=== PATIENT | male | born 1995 | race Caucasian/White ===

== ENCOUNTER 2016-11-18 15:30 | Emergency (ER) | payer MEDICAID ==
[~2016-11-18] VITALS: Ht 172.7 cm; Wt 59.1 kg
[~2016-11-18 15:30] MED LIST: CEPHALEXIN500 M1 PO; MOTRIN 200200 MG/TAB PO; NO HOME MEDICATIONS; NORCO 325 MG-51 TAB PO; NORCO 325 MG-7.1 TAB PO; PREDNISONE20 MG PO; TYLENOL 325MG325 MG PO; ZITHROMAX 250M250 MG PO; ZOFRAN 4MG T4 MG/TAB PO
[2016-11-18 15:34] VITALS: BP 130/77; TEMP 98.5
[2016-11-18 16:15] LABS: PH 6 (5-8); SQUAMOUS EPITHELIAL None Seen /hpf; URINE APPEARANCE Clear; URINE BACTERIA None Seen /hpf; URINE BILIRUBIN Negative (NEGATIVE); URINE BLOOD Negative (NEGATIVE); URINE COLOR Straw; URINE GLUCOSE Negative (NEGATIVE); URINE KETONE Negative (NEGATIVE); URINE RBC 0-2 /hpf; URINE UROBILINOGEN Negative (NEGATIVE); URINE WBC 0-2 /hpf
[2016-11-18 16:19] LABS: BASO # 0.1 (0.0-0.2); BASO % 1.2 % (0.0-2.0); EOS # 0.2 (0.0-0.7); EOS % 2.3 % (0-4.0); GRAN # 2.6 (1.4-6.5); GRAN % 38.9 % (42.2-75.2); HEMATOCRIT 44.5 % (36.0-47.0); HEMOGLOBIN 15.4 g/dl (12.5-16.1); LYMPH # 2.8 (1.2-3.4); LYMPH % 42.5 % (20.0-51.0); MEAN CELL VOLUME 89 fl (80.0-95.0); MEAN CORPUSCULAR HEMOGLOBIN 31 pg (26.0-32.0); MEAN CORPUSCULAR HGB CONC 35 g/dl (33.0-37.0); MEAN PLATELET VOLUME 10.7 fl (7.4-10.4); MONO % 14.8 % (1.7-9.3); PLATELET COUNT 250 K/mm3 (130-400); RED BLOOD COUNT 5.03 M/mm3 (4.20-5.60); WHITE BLOOD COUNT 6.6 K/mm3 (4.8-10.8)
[2016-11-18 16:25] LABS: AMPHETAMINE URINE NEGATIVE; BARBITURATES URINE NEGATIVE; BENZODIAZEPINES URINE NEGATIVE; BUPRENORPHINE URINE NEGATIVE; METHADONE URINE NEGATIVE; OPIATES URINE NEGATIVE; OXYCODONE URINE NEGATIVE; PHENCYCLIDINE URINE NEGATIVE; PROPOXYPHENE URINE NEGATIVE; THC CANNABINOIDS URINE NEGATIVE
[2016-11-18 16:28] LABS: ADJUSTED CALCIUM 8.6 mg/dL (8.4-10.2); ALANINE AMINOTRANSFERASE 42 U/L (21-72); ALBUMIN 4.5 gm/dL (3.5-5.0); ALKALINE PHOSPHATASE 116 U/L (50-136); ANION GAP 11 mmol/L (7-16); BILIRUBIN,TOTAL 0.8 mg/dL (0.0-1.0); BLOOD UREA NITROGEN 13 mg/dL (9-20); CARBON DIOXIDE 27 mmol/L (22-30); CHLORIDE 102 mmol/L (98-107); CREATININE, serum 0.93 mg/dL (0.66-1.25); GLUCOSE 98 mg/dL (74-106); SODIUM 140 mmol/L (137-145); TOTAL PROTEIN 7.5 gm/dL (6.4-8.2)
[2016-11-18 16:33] LABS: C-REACTIVE PROTEIN < 0.5 mg/dL (0.0-0.9)
[2016-11-18 16:42] LABS: PROLACTIN 9.9 ng/mL (3.7-17.9)
[2016-11-18 17:07] VITALS: PULSE 75
== END 2016-11-18 17:07 | disposition home or self-care (01) ==
LOC: COL.ER 15:30
PROVIDERS: Emergency Medicine
DX: G25.9 Extrapyramidal and movement disorder, unspecified (principal); Z81.8 Family history of other mental and behavioral disorders
CPT/HCPCS: J7030

== ENCOUNTER 2017-05-21 23:18 | Emergency (ER) | payer SELFPAY ==
[~2017-05-21] VITALS: Ht 170.2 cm; Wt 61.8 kg
[2017-05-21 23:21] VITALS: BP 121/82; TEMP 98.7
[2017-05-21] MEDS ORDERED: ULTRAM 50MG TAB50 MG PO (23:42)
[2017-05-21] MEDS ORDERED: AMOXICILLIN/CLA1 TA1 PO (23:42)
[2017-05-21 23:58] VITALS: PULSE 80
== END 2017-05-21 23:59 | disposition home or self-care (01) ==
LOC: COL.ER 23:18
DX: S61.231A Puncture wound without foreign body of left index finger without damage to nail, initial encounter (principal); W55.01XA Bitten by cat, initial encounter; Y92.009 Unspecified place in unspecified non-institutional (private) residence as the place of occurrence of the external cause; F17.210 Nicotine dependence, cigarettes, uncomplicated; Z98.890 Other specified postprocedural states

== ENCOUNTER → 2017-06-12 | Outpatient (CLI) | payer SELFPAY ==
[~2017-06-12] MED LIST changes: +AMOXICILLIN/CLA1 TA1 PO; +ULTRAM 50MG TAB50 MG PO
== END ==
LOC: COL.CARD 12:42
DX: R56.9 Unspecified convulsions (principal)

== ENCOUNTER 2017-07-15 22:31 | Emergency (ER) | payer MEDICAID ==
[~2017-07-15] VITALS: Ht 172.7 cm; Wt 61.8 kg
[2017-07-15 22:37] VITALS: BP 117/65; TEMP 99.5
[2017-07-15] MEDS ORDERED: FLEXERIL 1010 MG/TAB PO (23:26)
[2017-07-15 23:44] VITALS: PULSE 60
== END 2017-07-15 23:44 | disposition home or self-care (01) ==
LOC: COL.ER 22:31
DX: M26.602 Left temporomandibular joint disorder, unspecified (principal); F17.210 Nicotine dependence, cigarettes, uncomplicated

== ENCOUNTER 2017-07-26 21:48 | Emergency (ER) | payer MEDICAID ==
[~2017-07-26] VITALS: Ht 172.7 cm; Wt 59.1 kg
[~2017-07-26 21:48] MED LIST changes: +FLEXERIL 1010 MG/TAB PO
[2017-07-26 21:50] VITALS: BP 109/73; TEMP 99.4
[2017-07-26 23:19] VITALS: PULSE 70
== END 2017-07-26 23:20 | disposition home or self-care (01) ==
LOC: COL.ER 21:48
DX: S46.911A Strain of unspecified muscle, fascia and tendon at shoulder and upper arm level, right arm, initial encounter (principal); Z98.890 Other specified postprocedural states; X50.0XXA Overexertion from strenuous movement or load, initial encounter; Y92.009 Unspecified place in unspecified non-institutional (private) residence as the place of occurrence of the external cause

== ENCOUNTER 2017-08-28 22:40 | Emergency (ER) | payer MEDICAID ==
[~2017-08-28] VITALS: Ht 172.7 cm; Wt 59.1 kg
[2017-08-28 22:42] VITALS: TEMP 98.5
[2017-08-28 23:10] LABS: BASO # 0.1 (0.0-0.2); BASO % 1.3 % (0.0-2.0); EOS # 0.1 (0.0-0.7); EOS % 1.5 % (0-4.0); GRAN # 4.4 (1.4-6.5); GRAN % 46.2 % (42.2-75.2); HEMATOCRIT 44.2 % (42.0-52.0); HEMOGLOBIN 14.9 g/dl (13.5-18.0); LYMPH # 3.7 (1.2-3.4); LYMPH % 38.7 % (20.0-51.0); MEAN CELL VOLUME 90 fl (80.0-100.0); MEAN CORPUSCULAR HEMOGLOBIN 30 pg (27.0-31.0); MEAN CORPUSCULAR HGB CONC 34 g/dl (33.0-37.0); MEAN PLATELET VOLUME 11.1 fl (7.4-10.4); MONO # 1.1 (0.1-0.6); MONO % 11.9 % (1.7-9.3); PLATELET COUNT 242 K/mm3 (130-400); RED BLOOD COUNT 4.94 M/mm3 (4.20-5.60); WHITE BLOOD COUNT 9.4 K/mm3 (4.8-10.8)
[2017-08-28 23:19] LABS: ADJUSTED CALCIUM 8.7 mg/dL (8.4-10.2); ALBUMIN 4.5 gm/dL (3.5-5.0); BILIRUBIN,TOTAL 0.6 mg/dL (0.0-1.0); CALCIUM 9.1 mg/dL (8.4-10.2); CREATININE, serum 0.8 mg/dL (0.66-1.25); POTASSIUM 3.7 mmol/L (3.4-5.0); TOTAL PROTEIN 6.8 gm/dL (6.4-8.2)
[2017-08-28 23:36] LABS: PROLACTIN 12.2 ng/mL (3.7-17.9)
[2017-08-29 00:33] VITALS: BP 125/75; PULSE 79
== END 2017-08-29 00:35 | disposition home or self-care (01) ==
LOC: COL.ER 22:40
PROVIDERS: Emergency Medicine
DX: R56.9 Unspecified convulsions (principal); F17.210 Nicotine dependence, cigarettes, uncomplicated
CPT/HCPCS: J2060; J7030

== ENCOUNTER 2017-10-21 23:27 | Emergency (ER) | payer MEDICAID ==
[~2017-10-21] VITALS: Ht 172.7 cm; Wt 61.0 kg
[2017-10-21 23:30] VITALS: BP 118/73; TEMP 100.8
[2017-10-22 00:27] LABS: BASO # 0.1 (0.0-0.2); BASO % 0.6 % (0.0-2.0); EOS # 0.1 (0.0-0.7); EOS % 0.4 % (0-4.0); GRAN # 9.5 (1.4-6.5); GRAN % 75.9 % (42.2-75.2); HEMATOCRIT 43.9 % (42.0-52.0); HEMOGLOBIN 15.2 g/dl (13.5-18.0); LYMPH # 1.8 (1.2-3.4); LYMPH % 14.4 % (20.0-51.0); MEAN CELL VOLUME 89 fl (80.0-100.0); MEAN CORPUSCULAR HEMOGLOBIN 31 pg (27.0-31.0); MEAN CORPUSCULAR HGB CONC 35 g/dl (33.0-37.0); MEAN PLATELET VOLUME 10.6 fl (7.4-10.4); MONO % 8.3 % (1.7-9.3); PLATELET COUNT 255 K/mm3 (130-400); RED BLOOD COUNT 4.96 M/mm3 (4.20-5.60); REDCELL DISTRIBUTION WIDTH-CV 12.2 % (11.5-14.5)
[2017-10-22 00:28] LABS: INFLUENZA A NEGATIVE; INFLUENZA B NEGATIVE
[2017-10-22 00:37] LABS: ALBUMIN 4.8 gm/dL (3.5-5.0); BILIRUBIN,TOTAL 0.9 mg/dL (0.0-1.0); CALCIUM 9.1 mg/dL (8.4-10.2); CREATININE, serum 0.84 mg/dL (0.66-1.25); POTASSIUM 3.8 mmol/L (3.4-5.0); TOTAL PROTEIN 7.4 gm/dL (6.4-8.2)
[2017-10-22 00:49] VITALS: PULSE 96
== END 2017-10-22 00:49 | disposition home or self-care (01) ==
LOC: COL.ER 23:27
PROVIDERS: Family Medicine
DX: G43.909 Migraine, unspecified, not intractable, without status migrainosus (principal)
CPT/HCPCS: J1885; J2550

== ENCOUNTER 2017-11-04 19:03 | Emergency (ER) | payer MEDICAID ==
[~2017-11-04] VITALS: Ht 172.7 cm; Wt 60.9 kg
[2017-11-04 19:05] VITALS: BP 120/72; PULSE 73; TEMP 99
[2017-11-04] MEDS ORDERED: NORCO 325 MG-51 TAB PO (20:14)
[2017-11-04] MEDS ORDERED: AMOXICILLIN 50500 MG PO (20:14)
== END 2017-11-04 20:31 | disposition home or self-care (01) ==
LOC: COL.ER 19:03
DX: K02.9 Dental caries, unspecified (principal); F17.210 Nicotine dependence, cigarettes, uncomplicated; Z98.890 Other specified postprocedural states

== ENCOUNTER 2017-11-28 18:11 | Emergency (ER) | payer MEDICAID ==
[~2017-11-28] VITALS: Ht 172.7 cm; Wt 61.8 kg
[~2017-11-28 18:11] MED LIST changes: +AMOXICILLIN 50500 MG PO
[2017-11-28 18:14] VITALS: BP 126/79; PULSE 76; TEMP 98.6
[2017-11-28] MEDS ORDERED: FLEXERIL 1010 MG/TAB PO (18:31)
== END 2017-11-28 18:47 | disposition home or self-care (01) ==
LOC: COL.ER 18:11
DX: M26.602 Left temporomandibular joint disorder, unspecified (principal); F17.210 Nicotine dependence, cigarettes, uncomplicated

== ENCOUNTER 2017-12-04 17:37 | Emergency (ER) | payer MEDICAID ==
[~2017-12-04] VITALS: Ht 172.7 cm; Wt 60.9 kg
[2017-12-04 17:41] VITALS: BP 116/77; TEMP 98.9
[2017-12-04 18:41] VITALS: PULSE 80
== END 2017-12-04 18:42 | disposition home or self-care (01) ==
LOC: COL.ER 17:37
DX: S60.221A Contusion of right hand, initial encounter (principal); F17.210 Nicotine dependence, cigarettes, uncomplicated; W23.0XXA Caught, crushed, jammed, or pinched between moving objects, initial encounter; Y92.009 Unspecified place in unspecified non-institutional (private) residence as the place of occurrence of the external cause

== ENCOUNTER 2018-01-03 13:53 | Emergency (ER) | payer MEDICAID ==
[~2018-01-03] VITALS: Ht 172.7 cm; Wt 60.0 kg
[2018-01-03 13:55] VITALS: BP 126/67; TEMP 98.8
[2018-01-03] MEDS ORDERED: CEPHALEXIN500 M1 PO (14:54)
[2018-01-03 14:56] VITALS: PULSE 75
== END 2018-01-03 14:57 | disposition home or self-care (01) ==
LOC: COL.ER 13:53
DX: S60.362A Insect bite (nonvenomous) of left thumb, initial encounter (principal); F17.210 Nicotine dependence, cigarettes, uncomplicated; Z98.890 Other specified postprocedural states; W57.XXXA Bitten or stung by nonvenomous insect and other nonvenomous arthropods, initial encounter

== ENCOUNTER 2018-01-26 04:26 | Emergency (ER) | payer MEDICAID ==
[~2018-01-26] VITALS: Ht 172.7 cm; Wt 60.9 kg
[2018-01-26 04:34] VITALS: TEMP 98
[2018-01-26 05:46] LABS: BASO # 0.1 (0.0-0.2); BASO % 0.8 % (0.0-2.0); EOS # 0.3 (0.0-0.7); EOS % 2.6 % (0-4.0); GRAN # 3.9 (1.4-6.5); GRAN % 39.6 % (42.2-75.2); HEMATOCRIT 44.8 % (42.0-52.0); HEMOGLOBIN 15.4 g/dl (13.5-18.0); LYMPH # 4.2 (1.2-3.4); LYMPH % 42.5 % (20.0-51.0); MEAN CELL VOLUME 87 fl (80.0-100.0); MEAN CORPUSCULAR HEMOGLOBIN 30 pg (27.0-31.0); MEAN CORPUSCULAR HGB CONC 34 g/dl (33.0-37.0); MEAN PLATELET VOLUME 10.4 fl (7.4-10.4); MONO # 1.4 (0.1-0.6); MONO % 14.3 % (1.7-9.3); PLATELET COUNT 298 K/mm3 (130-400); RED BLOOD COUNT 5.18 M/mm3 (4.20-5.60); REDCELL DISTRIBUTION WIDTH-CV 12.5 % (11.5-14.5)
[2018-01-26 05:57] LABS: ALANINE AMINOTRANSFERASE 53 U/L (21-72); ALKALINE PHOSPHATASE 113 U/L (50-136); ANION GAP 11 mmol/L (7-16); AST,SGOT 29 U/L (15-37); BILIRUBIN,TOTAL 0.5 mg/dL (0.0-1.0); BLOOD UREA NITROGEN 15 mg/dL (9-20); CALCIUM 9.3 mg/dL (8.4-10.2); CARBON DIOXIDE 29 mmol/L (22-30); CHLORIDE 101 mmol/L (98-107); GLUCOSE 91 mg/dL (74-106); POTASSIUM 3.9 mmol/L (3.4-5.0); SODIUM 141 mmol/L (137-145); TOTAL PROTEIN 7.2 gm/dL (6.4-8.2)
[2018-01-26 06:08] LABS: TROPONIN-I < 0.012 ng/mL (0.000-0.034)
[2018-01-26 06:39] VITALS: BP 102/65; PULSE 66
== END 2018-01-26 06:39 | disposition home or self-care (01) ==
LOC: COL.ER 04:26
PROVIDERS: Emergency Medicine
DX: R07.89 Other chest pain (principal); M79.602 Pain in left arm

== ENCOUNTER 2018-02-04 15:49 | Emergency (ER) | payer MEDICAID ==
[~2018-02-04] VITALS: Ht 172.7 cm; Wt 60.9 kg
[2018-02-04 15:51] VITALS: TEMP 99.7
[2018-02-04 16:40] LABS: ANION GAP 14 mmol/L (7-16); BLOOD UREA NITROGEN 15 mg/dL (9-20); CALCIUM 9.7 mg/dL (8.4-10.2); CARBON DIOXIDE 26 mmol/L (22-30); CHLORIDE 103 mmol/L (98-107); CREATININE, serum 0.96 mg/dL (0.66-1.25); GLUCOSE 99 mg/dL (74-106); POTASSIUM 3.6 mmol/L (3.4-5.0); SODIUM 143 mmol/L (137-145)
[2018-02-04 16:46] VITALS: BP 129/71
[2018-02-04 16:52] LABS: TROPONIN-I < 0.012 ng/mL (0.000-0.034)
[2018-02-04 17:11] VITALS: PULSE 78
== END 2018-02-04 17:14 | disposition home or self-care (01) ==
LOC: COL.ER 15:49
PROVIDERS: Emergency Medicine
DX: R07.89 Other chest pain (principal); R06.00 Dyspnea, unspecified; F17.210 Nicotine dependence, cigarettes, uncomplicated; Z98.890 Other specified postprocedural states

== ENCOUNTER 2018-02-12 12:15 | Emergency (ER) | payer MEDICAID ==
[~2018-02-12] VITALS: Ht 172.7 cm; Wt 64.5 kg
[2018-02-12 12:17] VITALS: BP 127/68; PULSE 80; TEMP 99.3
== END 2018-02-12 13:38 | disposition home or self-care (01) ==
LOC: COL.ER 12:15
DX: R09.89 Other specified symptoms and signs involving the circulatory and respiratory systems (principal); T45.2X5A Adverse effect of vitamins, initial encounter; F17.210 Nicotine dependence, cigarettes, uncomplicated

== ENCOUNTER 2018-02-14 16:55 | Emergency (ER) | payer MEDICAID ==
[~2018-02-14] VITALS: Ht 172.7 cm; Wt 64.5 kg
[2018-02-14 16:57] VITALS: BP 132/67; TEMP 99.5
[2018-02-14 17:59] VITALS: PULSE 70
== END 2018-02-14 18:00 | disposition home or self-care (01) ==
LOC: COL.ER 16:55
DX: M75.22 Bicipital tendinitis, left shoulder (principal); M75.82 Other shoulder lesions, left shoulder; Z87.891 Personal history of nicotine dependence; Z95.2 Presence of prosthetic heart valve; X50.0XXA Overexertion from strenuous movement or load, initial encounter; Y92.89 Other specified places as the place of occurrence of the external cause; Y99.0 Civilian activity done for income or pay

== ENCOUNTER 2018-03-03 18:23 | Emergency (ER) | payer MEDICAID ==
[~2018-03-03] VITALS: Ht 172.7 cm; Wt 61.8 kg
[2018-03-03 18:25] VITALS: BP 125/72; TEMP 97.6
[2018-03-03 19:29] VITALS: PULSE 58
== END 2018-03-03 19:30 | disposition home or self-care (01) ==
LOC: COL.ER 18:23
DX: S30.862A Insect bite (nonvenomous) of penis, initial encounter (principal); W57.XXXA Bitten or stung by nonvenomous insect and other nonvenomous arthropods, initial encounter; Z87.891 Personal history of nicotine dependence

== ENCOUNTER 2018-04-09 00:41 | Emergency (ER) | payer MEDICAID ==
[2018-04-09 00:48] VITALS: BP 116/65; PULSE 80; TEMP 98.9
== END 2018-04-09 01:25 | disposition home or self-care (01) ==
LOC: COL.ER 00:41
DX: M75.91 Shoulder lesion, unspecified, right shoulder (principal); Z98.890 Other specified postprocedural states

== ENCOUNTER 2018-05-26 17:39 | Emergency (ER) | payer MEDICAID ==
[~2018-05-26] VITALS: Ht 172.7 cm; Wt 62.7 kg
[2018-05-26 17:43] VITALS: BP 108/63; PULSE 85; TEMP 98.7
== END 2018-05-26 19:08 | disposition home or self-care (01) ==
LOC: COL.ER 17:39
DX: S20.212A Contusion of left front wall of thorax, initial encounter (principal); F17.210 Nicotine dependence, cigarettes, uncomplicated; W51.XXXA Accidental striking against or bumped into by another person, initial encounter; Y92.009 Unspecified place in unspecified non-institutional (private) residence as the place of occurrence of the external cause; Y93.72 Activity, wrestling
CPT/HCPCS: A9284; J1885

== ENCOUNTER 2018-06-03 18:12 | Emergency (ER) | payer SELFPAY ==
[~2018-06-03] VITALS: Wt 63.6 kg
[2018-06-03 18:14] VITALS: BP 112/70
[2018-06-03 18:43] VITALS: TEMP 98.1
[2018-06-03 19:16] VITALS: PULSE 68
== END 2018-06-03 19:19 | disposition home or self-care (01) ==
LOC: COL.ER 18:12
DX: S46.911A Strain of unspecified muscle, fascia and tendon at shoulder and upper arm level, right arm, initial encounter (principal); Z87.891 Personal history of nicotine dependence; X50.0XXA Overexertion from strenuous movement or load, initial encounter; Y92.009 Unspecified place in unspecified non-institutional (private) residence as the place of occurrence of the external cause
CPT/HCPCS: J1885

== ENCOUNTER 2018-06-19 12:28 | Emergency (ER) | payer SELFPAY ==
[~2018-06-19] VITALS: Ht 172.7 cm; Wt 61.8 kg
[2018-06-19 12:34] VITALS: BP 115/65; TEMP 99.2
[2018-06-19 14:27] VITALS: PULSE 70
== END 2018-06-19 14:31 | disposition home or self-care (01) ==
LOC: COL.ER 12:28
DX: M25.511 Pain in right shoulder (principal)
CPT/HCPCS: J3301

== ENCOUNTER 2018-07-20 15:09 | Emergency (ER) | payer SELFPAY ==
[~2018-07-20] VITALS: Ht 172.7 cm; Wt 61.8 kg
[2018-07-20 15:12] VITALS: BP 116/74; TEMP 98
[2018-07-20] MEDS ORDERED: MOTRIN 800800 MG/TAB PO (16:05)
[2018-07-20] MEDS ORDERED: NORCO 325 MG-51 TAB PO (16:05)
[2018-07-20] MEDS ORDERED: FLEXERIL 1010 MG/TAB PO (16:05)
[2018-07-20 16:25] VITALS: PULSE 83
== END 2018-07-20 16:26 | disposition home or self-care (01) ==
LOC: COL.ER 15:09
DX: S33.9XXA Sprain of unspecified parts of lumbar spine and pelvis, initial encounter (principal); Z87.891 Personal history of nicotine dependence; W11.XXXA Fall on and from ladder, initial encounter

== ENCOUNTER 2018-08-30 13:40 | Emergency (ER) | payer SELFPAY ==
[~2018-08-30] VITALS: Ht 172.7 cm; Wt 61.8 kg
[~2018-08-30 13:40] MED LIST changes: +MOTRIN 800800 MG/TAB PO
[2018-08-30 13:53] VITALS: TEMP 98.4
[2018-08-30 15:46] VITALS: BP 115/67; PULSE 82
== END 2018-08-30 15:46 | disposition home or self-care (01) ==
LOC: COL.ER 13:40
DX: M54.5 Low back pain (principal); Z87.891 Personal history of nicotine dependence
CPT/HCPCS: J1885; J2360

== ENCOUNTER 2018-09-21 16:16 | Emergency (ER) | payer SELFPAY ==
[~2018-09-21] VITALS: Ht 172.7 cm; Wt 61.8 kg
[2018-09-21 17:11] VITALS: BP 111/63; PULSE 73; TEMP 98.8
== END 2018-09-21 17:11 | disposition home or self-care (01) ==
LOC: COL.ER 16:16
DX: J02.9 Acute pharyngitis, unspecified (principal)

== ENCOUNTER 2018-11-03 14:34 | Emergency (ER) | payer SELFPAY ==
[~2018-11-03] VITALS: Ht 172.7 cm; Wt 61.8 kg
[2018-11-03 14:54] VITALS: BP 122/71; PULSE 84; TEMP 99.6
== END 2018-11-03 17:11 | disposition home or self-care (01) ==
LOC: COL.ER 14:34
DX: J06.9 Acute upper respiratory infection, unspecified (principal)

== ENCOUNTER 2019-07-08 20:29 | Emergency (ER) | payer SELFPAY ==
[~2019-07-08] VITALS: Ht 172.7 cm; Wt 68.2 kg
[2019-07-08 20:41] VITALS: BP 117/63; TEMP 98.2
[2019-07-08 21:57] VITALS: PULSE 86
== END 2019-07-08 21:58 | disposition home or self-care (01) ==
LOC: COL.ER 20:29
DX: S93.402A Sprain of unspecified ligament of left ankle, initial encounter (principal); X50.1XXA Overexertion from prolonged static or awkward postures, initial encounter

== ENCOUNTER 2020-04-21 22:18 | Emergency (ER) | payer SELFPAY ==
[~2020-04-21] VITALS: Ht 172.7 cm; Wt 68.2 kg
[2020-04-21 22:39] VITALS: BP 133/81; PULSE 64; TEMP 98.4
[2020-04-21] MEDS ORDERED: CLEOCIN HCL300 MG PO (22:59)
[2020-04-21] MEDS ORDERED: NORCO 325 MG-51 TAB PO (22:59)
== END 2020-04-21 23:16 | disposition home or self-care (01) ==
LOC: COL.ER 22:18
DX: K02.9 Dental caries, unspecified (principal); Z87.891 Personal history of nicotine dependence

== ENCOUNTER 2020-06-12 10:13 | Emergency (ER) | payer SELFPAY ==
[~2020-06-12] VITALS: Ht 172.7 cm; Wt 76.4 kg
[~2020-06-12 10:13] MED LIST changes: +CLEOCIN HCL300 MG PO
[2020-06-12 10:17] VITALS: BP 121/72; PULSE 89; TEMP 97.8
[2020-06-12] MEDS ORDERED: CRUTCHES MC (11:07)
== END 2020-06-12 11:42 | disposition home or self-care (01) ==
LOC: COL.ER 10:13
DX: S80.02XA Contusion of left knee, initial encounter (principal); W20.8XXA Other cause of strike by thrown, projected or falling object, initial encounter; Y92.59 Other trade areas as the place of occurrence of the external cause; Y99.0 Civilian activity done for income or pay
CPT/HCPCS: L1846

== ENCOUNTER 2020-07-28 05:10 | Day surgery (SDC) | payer OTHER ==
[2020-07-28] VITALS (9 sets, daily range): BP systolic 103–125; BP diastolic 62–78; PULSE 67–84; TEMP 98–98.6
[~2020-07-28] VITALS: Ht 172.7 cm; Wt 78.5 kg
[~2020-07-28 05:10] MED LIST changes: +CRUTCHES MC
[2020-07-28] MEDS ORDERED: TYLENOL 500MG500 MG PO (05:45)
[2020-07-28] MEDS ORDERED: NAPROSYN500 MG PO (06:57)
[2020-07-28] MEDS ORDERED: ROXICODONE 55 MG/TAB PO (06:57)
[2020-07-28] MEDS ORDERED: TYLENOL 325MG325 MG PO (06:57)
[2020-07-28] MEDS ORDERED: ZOFRAN 4MG T4 MG/TAB PO (06:57)
[2020-07-28] MEDS ORDERED: ASPIRIN E.C. 8181 MG PO (06:57)
--- NOTE | 2020-07-28 08:58 | NUR ---
Patient returns to room 7 per cart from PACU accompanied by Marisol MCCLENDON. IV fluids infusing. Siderails up x2 and call light in reach. Left leg elevated on pillow with ice on the left knee. Jose wrap dressing dry on the left leg. Drowsy and allowed to sleep.
--- NOTE | 2020-07-28 09:13 | NUR ---
Resting with eyes closed and fiance in the room.
--- NOTE | 2020-07-28 09:28 | NUR ---
Continues to rest with eyes closed.
--- NOTE | 2020-07-28 09:43 | NUR ---
Continues to rest with eyes closed. Patient took off oxygen and sats 96%.
--- NOTE | 2020-07-28 09:58 | NUR ---
More awake. Sitting up and eating muffin and sipping on Sprite.
--- NOTE | 2020-07-28 09:58 | NUR ---
Resting when not disturbed. IV fluids continue to infuse.
--- NOTE | 2020-07-28 10:24 | NUR ---
Assisted up to the bathroom and voids and returns to room. Complains of left knee pain. Medicated with Percocet 5mg one tab for pain. Has tolerated muffin and water without nausea.
--- NOTE | 2020-07-28 10:28 | NUR ---
Left leg elevated on pillow and ice on the knee.
--- NOTE | 2020-07-28 10:58 | NUR ---
Resting with eyes closed when not disturbed.
--- NOTE | 2020-07-28 11:23 | NUR ---
Toradol 30mg IV given for continued complaints of left knee pain. States that that the Percocet has not helped. Rates pain at 9/10. Requests second muffin and given.
--- NOTE | 2020-07-28 12:00 | NUR ---
Resting and now with eyes closed and not disturbed.
--- NOTE | 2020-07-28 13:00 | NUR ---
Continues to rest with eyes closed when not disturbed. Left leg elevated on pillow with ice bag in place.
--- NOTE | 2020-07-28 13:51 | NUR ---
Awake and states that he is feeling better and ready for discharge. IV discontinued and site is free of redness. Jose wrap dressing on the left knee dry. Given dismissal instructions and voices understanding of these.
--- NOTE | 2020-07-28 14:03 | NUR ---
Dismissed to home driven by spouse and taken to the front door per wheelchair and assisted into wheelchair with dismissal instructions in hand.
== END 2020-07-28 14:03 | disposition home or self-care (01) ==
LOC: SDCO 05:10
DX: S83.242A Other tear of medial meniscus, current injury, left knee, initial encounter (principal); Z83.3 Family history of diabetes mellitus; Z88.8 Allergy status to other drugs, medicaments and biological substances; Z20.828 Contact with and (suspected) exposure to other viral communicable diseases
CPT/HCPCS: J0690; J1100; J1885; J2405; J2550; J2704; J3010; J7120

== ENCOUNTER 2021-11-15 17:48 | Emergency (ER) | payer BC ==
[~2021-11-15] VITALS: Ht 175.3 cm; Wt 71.8 kg
[~2021-11-15 17:48] MED LIST changes: +ASPIRIN E.C. 8181 MG PO; +NAPROSYN500 MG PO; +ROXICODONE 55 MG/TAB PO; +TYLENOL 500MG500 MG PO
[2021-11-15 17:54] VITALS: TEMP 99.2
[2021-11-15] MEDS ORDERED: NORCO 325 MG-51 TAB PO (18:21)
[2021-11-15] MEDS ORDERED: AMOXICILLIN 50500 MG PO (18:21)
[2021-11-15 18:57] VITALS: BP 132/70; PULSE 76
== END 2021-11-15 18:57 | disposition home or self-care (01) ==
LOC: COL.ER 17:48
DX: K08.89 Other specified disorders of teeth and supporting structures (principal); F17.210 Nicotine dependence, cigarettes, uncomplicated
CPT/HCPCS: J1885

== ENCOUNTER 2021-11-16 20:35 | Emergency (ER) | payer BC ==
[~2021-11-16] VITALS: Ht 175.3 cm; Wt 70.9 kg
[2021-11-16 20:55] LABS: BASO # 0.1 K/mm3 (0.0-0.2); BASO % 0.6 % (0.0-2.0); EOS # 0.1 K/mm3 (0.0-0.7); EOS % 1.2 % (0.0-4.0); GRAN # 4.6 K/mm3 (1.4-6.5); GRAN % 47.4 % (42.2-75.2); HEMATOCRIT 47.3 % (42.0-52.0); HEMOGLOBIN 15.9 g/dl (13.5-18.0); LYMPH # 3.8 K/mm3 (1.2-3.4); LYMPH % 38.9 % (20.0-51.0); MEAN CELL VOLUME 87 fl (80.0-100.0); MEAN CORPUSCULAR HEMOGLOBIN 29 pg (27-31); MEAN CORPUSCULAR HGB CONC 34 g/dl (33.0-37.0); MEAN PLATELET VOLUME 10.6 fl (7.4-10.4); MONO # 1.1 K/mm3 (0.1-0.6); MONO % 11.4 % (1.7-9.3); PLATELET COUNT 287 K/mm3 (130-400); RED BLOOD COUNT 5.44 M/mm3 (4.20-5.60); REDCELL DISTRIBUTION WIDTH-CV 12.9 % (11.5-14.5)
[2021-11-16 21:13] LABS: ALANINE AMINOTRANSFERASE 72 U/L (0-55); ALBUMIN 4.4 gm/dL (3.5-5.0); ALKALINE PHOSPHATASE 131 U/L (40-150); ANION GAP 9 mmol/L (7-16); AST,SGOT 56 U/L (5-34); BILIRUBIN,TOTAL 0.8 mg/dL (0.2-1.2); BLOOD UREA NITROGEN 9 mg/dL (9-21); CALCIUM 8.6 mg/dL (8.4-10.2); CARBON DIOXIDE 25 mmol/L (22-29); CHLORIDE 107 mmol/L (98-107); CREATININE, serum 0.98 mg/dL (0.72-1.25); GLUCOSE 89 mg/dL (70-99); POTASSIUM 3.4 mmol/L (3.5-4.5); SODIUM 141 mmol/L (136-145); TOTAL PROTEIN 7.4 gm/dL (6.2-8.1)
[2021-11-16 21:19] LABS: TROPONIN-I < 0.010 ng/mL (0.00-0.033)
[2021-11-16 22:50] VITALS: BP 136/88; PULSE 97
== END 2021-11-16 22:50 | disposition home or self-care (01) ==
LOC: COL.ER 20:35
PROVIDERS: Physician Assistant
DX: R07.89 Other chest pain (principal); F17.210 Nicotine dependence, cigarettes, uncomplicated
CPT/HCPCS: J2060; J7030

== ENCOUNTER 2022-04-29 19:49 | Emergency (ER) | payer BC ==
[~2022-04-29] VITALS: Ht 172.7 cm; Wt 72.7 kg
[2022-04-29 19:51] VITALS: BP 138/80; TEMP 98.7
[2022-04-29 21:42] VITALS: PULSE 73
== END 2022-04-29 21:42 | disposition home or self-care (01) ==
LOC: COL.ER 19:49
DX: M25.512 Pain in left shoulder (principal); F17.200 Nicotine dependence, unspecified, uncomplicated; W08.XXXA Fall from other furniture, initial encounter

== ENCOUNTER 2022-07-01 12:28 | Emergency (ER) | payer BC ==
[~2022-07-01] VITALS: Ht 172.7 cm; Wt 81.4 kg
[2022-07-01 12:49] VITALS: TEMP 99.1
[2022-07-01] MEDS ORDERED: ULTRAM 50MG TAB50 MG PO (15:25)
[2022-07-01] MEDS ORDERED: SEPTRA DS 8001 TAB PO (15:25)
[2022-07-01 15:52] VITALS: BP 115/75; PULSE 65
== END 2022-07-01 15:52 | disposition home or self-care (01) ==
LOC: COL.ER 12:28
DX: L02.211 Cutaneous abscess of abdominal wall (principal); L03.311 Cellulitis of abdominal wall; F17.210 Nicotine dependence, cigarettes, uncomplicated

== ENCOUNTER 2022-07-04 19:16 | Emergency (ER) | payer BC ==
[~2022-07-04] VITALS: Ht 172.7 cm; Wt 73.6 kg
[~2022-07-04 19:16] MED LIST changes: +SEPTRA DS 8001 TAB PO
[2022-07-04 19:25] VITALS: TEMP 98.6
[2022-07-04 20:35] VITALS: BP 116/76; PULSE 83
== END 2022-07-04 20:35 | disposition home or self-care (01) ==
LOC: COL.ER 19:16
DX: L02.211 Cutaneous abscess of abdominal wall (principal); F17.290 Nicotine dependence, other tobacco product, uncomplicated